=== PATIENT | female | born 1995 | race Caucasian/White ===

== ENCOUNTER 2022-06-27 09:24 | Emergency (ER) | payer MEDICAID ==
[~2022-06-27] VITALS: Ht 152.4 cm; Wt 74.0 kg
[~2022-06-27 09:24] MED LIST: NOCURR
[2022-06-27 09:27] VITALS: BP 119/73
[2022-06-27 09:57] LABS: COVID AG,FIA SOURCE NASAL SWAB
[2022-06-27] MEDS ORDERED: ACETAMINOPHEN 500 MG TABLET PO ONE (10:00)
[2022-06-27 10:37] LABS: INFLUENZA TYPE A NEGATIVE FOR TYPE A (NEGATIVE); INFLUENZA TYPE B NEGATIVE FOR TYPE B (NEGATIVE)
== END 2022-06-27 11:44 | disposition home or self-care (01) ==
LOC: EMS 09:24
DX: U07.1 COVID-19 (principal)
CPT/HCPCS: 87804; 99283

== ENCOUNTER 2023-07-07 09:18 | Emergency (ER) | payer MEDICAID, OTHER ==
[~2023-07-07] VITALS: Ht 153 cm; Wt 80.0 kg
[2023-07-07 09:25] VITALS: TEMP 99
[2023-07-07] MEDS ORDERED: KETOROLAC TROMETHAMINE 30 MG/ML VIAL IM ONE (10:15)
[2023-07-07] MEDS ORDERED: LIDOCAINE 5% TRANSDERMAL PATCH TD ONE (10:15)
[2023-07-07] MEDS ORDERED: CYCLOBENZAPRINE HCL 10 MG TABLET PO ONE (10:15)
[2023-07-07] MEDS ORDERED: IBUP-1492 PO (10:32)
[2023-07-07] MEDS ORDERED: LIDO700A15 TP (10:32)
[2023-07-07] MEDS ORDERED: CYCL-448 PO (10:32)
[2023-07-07 10:38] VITALS: BP 136/88; PULSE 88; RESP 16
== END 2023-07-07 10:44 | disposition home or self-care (01) ==
LOC: EMS 09:24
DX: M54.17 Radiculopathy, lumbosacral region (principal)
CPT/HCPCS: 99283; 96372; J1885

== ENCOUNTER 2024-06-17 20:53 | Emergency (ER) | payer MEDICAID, OTHER ==
[~2024-06-17] VITALS: Ht 152.4 cm; Wt 83.1 kg
[~2024-06-17 20:53] MED LIST changes: +CYCL-448 PO; +IBUP-1492 PO; +LIDO700A15 TP
[2024-06-17 21:13] VITALS: BP 122/83; PULSE 82; RESP 14; TEMP 98.3; O2SAT 99
[2024-06-17 21:44] LABS: APPEARANCE,URINE HAZY (CLEAR); BILIRUBIN,URINE NEGATIVE (NEGATIVE); COLOR,URINE YELLOW (YELLOW); GLUCOSE, URINE (UA) NEGATIVE (NEGATIVE); KETONES,URINE NEGATIVE (NEGATIVE); LEUKOCYTE ESTERASE ,URINE TRACE (NEGATIVE); NITRATE,URINE NEGATIVE (NEGATIVE); OCCULT BLOOD,URINE LARGE (NEGATIVE); PH,URINE 6.5 (5.0-8.0); PROTEIN,URINE TRACE mg/dL (NEGATIVE); SPECIFIC GRAVITIY, URINE 1.022 (1.003-1.030)
[2024-06-17 21:56] LABS: RBC,URINE 26-50 /HPF (0-2)
[2024-06-17 21:57] LABS: BACTERIA,URINE None Seen /HPF (None Seen); SQUAMOUS EPITHELIAL CELL,UR Moderate /LPF (None Seen); WBC,URINE 0-2 /HPF (0-5)
[2024-06-18] MEDS ORDERED: CEPH-558 PO (02:22)
[2024-06-18] MEDS: CEPHALEXIN MONOHYDRATE 500 MG CAPSULE PO ONE (03:45)
== END 2024-06-18 02:00 | disposition home or self-care (01) ==
LOC: EMS 20:53
DX: O20.0 Threatened abortion (principal); O23.41 Unspecified infection of urinary tract in pregnancy, first trimester; Z3A.10 10 weeks gestation of pregnancy
CPT/HCPCS: 76801; 81001; 84702; 99284